=== PATIENT | male | born 1945 | race Hispanic/Latino ===

== ENCOUNTER 2017-08-19 18:45 | Inpatient (IN) | payer OTHER ==
[~2017-08-19] VITALS: Ht 180.3 cm; Wt 73.3 kg
[~2017-08-19 18:45] MED LIST: CLOP75TA14 PO; SIMV10TA6 PO; metformin PO
[2017-08-19] MEDS ORDERED: CEFEPIME HCL 1 GM VIAL ONE (20:50)
[2017-08-19 21:04] LABS: BASOPHILS % (AUTO) 0.6 % (0.0-5.0); EOSINOPHILS % (AUTO) 1.2 % (0.0-8.0); HEMATOCRIT 36.7 % (42-54); LYMPHOCYTES % (AUTO) 8.4 % (21.0-51.0); MEAN CORPUSCULAR HEMOGLOBIN 30.1 pg (27.0-33.0); MEAN CORPUSCULAR HGB CONC 33.5 g/dL (32.0-36.0); MEAN CORPUSCULAR VOLUME 89.8 fL (79-99); MONOCYTES % (AUTO) 8.7 % (3.0-13.0); NEUTROPHILS % (AUTO) 81.1 % (40.0-77.0); PLATELET COUNT (AUTO) 213 K/uL (130-400); RED BLOOD CELL COUNT(AUTO) 4.09 MIL/uL (4.50-6.20); RED CELL DISTRIBUTION WIDTH 13.4 % (11.0-15.5); WHITE BLOOD COUNT (AUTO) 9.2 K/uL (4.8-10.8)
[2017-08-19 21:11] LABS: CREATININE 1.7 mg/dL (0.5-1.5); POTASSIUM 5.2 mmol/L (3.5-5.1)
[2017-08-19 21:19] LABS: ALBUMIN 3.2 g/dL (3.5-5.0); BILIRUBIN,DIRECT 0.2 mg/dL (0.0-0.3); BILIRUBIN,TOTAL 0.4 mg/dL (0.2-1.0)
[2017-08-19 22:30] VITALS: BP 152/98
[2017-08-20] VITALS: BP 156/68
[2017-08-20] MEDS ORDERED: AMLO5TAB2 PO (02:25)
[2017-08-20] MEDS ORDERED: LISI40TA4 PO (02:25)
[2017-08-20] MEDS ORDERED: ASPI-1026 PO (02:25)
[2017-08-20 04:00] VITALS: BP 134/61
[2017-08-20 04:25] LABS: MEAN CORPUSCULAR HEMOGLOBIN 31.1 pg (27.0-33.0); MEAN CORPUSCULAR HGB CONC 34.9 g/dL (32.0-36.0); NUCLEATED RED BLOOD CELLS 0.1 % (0.0-0.19); PLATELET COUNT (AUTO) 201 K/uL (130-400); RED BLOOD CELL COUNT(AUTO) 3.82 MIL/uL (4.50-6.20); RED CELL DISTRIBUTION WIDTH 13.3 % (11.0-15.5); WHITE BLOOD COUNT (AUTO) 7.5 K/uL (4.8-10.8)
[2017-08-20 04:44] LABS: ALBUMIN 2.9 g/dL (3.5-5.0); BILIRUBIN,DIRECT 0.1 mg/dL (0.0-0.3); BILIRUBIN,TOTAL 0.5 mg/dL (0.2-1.0); CREATININE 1.3 mg/dL (0.5-1.5); POTASSIUM 4.7 mmol/L (3.5-5.1); TOTAL PROTEIN, SERUM 7.2 g/dL (6.0-8.3)
[2017-08-20 08:00] VITALS: BP 136/57
[2017-08-20] MEDS ORDERED: INSULIN LISPRO 100 UNIT/ML 3ML SQ PRN (08:30)
[2017-08-20] MEDS: CLOPIDOGREL BISULFATE 75 MG TAB PO SCH (09:00)
[2017-08-20] MEDS: ASPIRIN 325 MG TABLET PO SCH (09:00)
[2017-08-20] MEDS ORDERED: CEFEPIME 1GM+NS 50ML 50 ML IV SCH (10:00)
[2017-08-20] MEDS ORDERED: ACETAMINOPHEN EXTRA STRENGTH 500 MG TABLET ONE (11:13)
[2017-08-20] MEDS: CEFEPIME HCL 1 GM VIAL IVP SCH ×2 (11:15→23:07)
[2017-08-20] MEDS: AMLODIPINE BESYLATE 5 MG TAB PO SCH (11:16)
[2017-08-20] MEDS: LISINOPRIL 40 MG TABLET PO SCH ×2 (11:16→20:38)
[2017-08-20 12:00] VITALS: BP_SYST 113; BP_SYST 145; BP_DIAS 67; BP_DIAS 68
[2017-08-20 16:00] VITALS: BP 129/58
[2017-08-20] MEDS: METFORMIN HCL 500 MG TABLET PO SCH ×2 (18:02→18:06)
[2017-08-20] MEDS: ACETAMINOPHEN EXTRA STRENGTH 500 MG TABLET PO PRN (18:02)
[2017-08-20 20:00] VITALS: BP 142/62
[2017-08-20] MEDS ORDERED: ATORVASTATIN CALCIUM 10 MG TABLET PO SCH (21:00)
[2017-08-21] VITALS (10 sets, daily range): BP systolic 99–166; BP diastolic 47–78
[2017-08-21 03:52] LABS: HEMATOCRIT 35.5 % (42-54); MEAN CORPUSCULAR HEMOGLOBIN 31.2 pg (27.0-33.0); MEAN CORPUSCULAR VOLUME 89.1 fL (79-99); PLATELET COUNT (AUTO) 192 K/uL (130-400); RED BLOOD CELL COUNT(AUTO) 3.99 MIL/uL (4.50-6.20); RED CELL DISTRIBUTION WIDTH 13.3 % (11.0-15.5); WHITE BLOOD COUNT (AUTO) 8.4 K/uL (4.8-10.8)
[2017-08-21 04:02] LABS: CREATININE 1.2 mg/dL (0.5-1.5); POTASSIUM 4.9 mmol/L (3.5-5.1)
[2017-08-21 04:16] LABS: BAND NEUTROPHILS % (MANUAL) 8 % (0-2); EOSINOPHILS % (MANUAL) 4 % (1-6); LYMPHOCYTES % (MANUAL) 9 % (22-44); MAN.DIFF COMMENT-IMPRESSION MANUAL DIFFERENTIAL; MONOCYTES % (MANUAL) 6 % (2-9); PLATELET MORPHOLOGY COMMENT ADEQUATE; SEGMENTED NEUTROPHILS % 73 % (40-70)
[2017-08-21] MEDS: METFORMIN HCL 500 MG TABLET PO SCH ×2 (08:00→17:00)
[2017-08-21] MEDS: CLOPIDOGREL BISULFATE 75 MG TAB PO SCH (09:00)
[2017-08-21] MEDS: ASPIRIN 325 MG TABLET PO SCH (09:00)
[2017-08-21] MEDS: CEFEPIME HCL 1 GM VIAL IVP SCH ×2 (09:21→21:02)
[2017-08-21] MEDS: LISINOPRIL 40 MG TABLET PO SCH ×2 (09:21→20:42)
[2017-08-21] MEDS: AMLODIPINE BESYLATE 5 MG TAB PO SCH (09:49)
[2017-08-21] MEDS ORDERED: DiphenhydrAMINE HCL 50 MG/ML VIAL IVP PRN (12:15)
[2017-08-21 14:04] LABS: INR 1.08 (0.85-1.15); PARTIAL THROMBOPLASTIN TIME 28.2 SEC (26.3-35.5); PROTHROMBIN TIME 11.3 SEC (9.6-11.6)
[2017-08-21] MEDS ORDERED: NITROGLYCERIN 5 MG/ML 10 ML VIAL IV ONE (15:31)
[2017-08-21] MEDS ORDERED: HEPARIN SODIUM 1000UNIT/ML 10ML VIAL ONE (15:31)
[2017-08-21] MEDS ORDERED: ISOVUE-300 100 ML VIAL IV ONE ×3 (15:32→16:34)
[2017-08-21] MEDS ORDERED: LIDOCAINE HCL-MPF 2% 5ML VIAL ONE (15:36)
[2017-08-21] MEDS ORDERED: MIDAZOLAM HCL 1 MG/ML 2ML VIAL ONE (15:53)
[2017-08-21] MEDS ORDERED: FENTANYL CITRATE PF 50 MCG/1 ML 2ML VIAL ONE (15:53)
[2017-08-21] MEDS ORDERED: DiphenhydrAMINE HCL 50 MG/ML VIAL ONE (16:01)
[2017-08-21] MEDS ORDERED: ASPIRIN 325MG EC TAB 325 MG TABLET.DR PO ONE (17:12)
[2017-08-21] MEDS ORDERED: TICAGRELOR 90 MG TABLET ONE (17:12)
[2017-08-21] MEDS ORDERED: SODIUM CHLORIDE 0.9% 1000ML 1,000 ML IV SCH (17:30)
[2017-08-21] MEDS: ATORVASTATIN CALCIUM 40 MG TABLET PO SCH (20:42)
[2017-08-22] VITALS (29 sets, daily range): BP systolic 93–199; BP diastolic 48–91
[2017-08-22] MEDS ORDERED: TICAGRELOR 90 MG TABLET PO SCH (04:00)
[2017-08-22 04:16] LABS: HEMATOCRIT 35.7 % (42-54); MEAN CORPUSCULAR HEMOGLOBIN 30.5 pg (27.0-33.0); MEAN CORPUSCULAR HGB CONC 34.4 g/dL (32.0-36.0); MEAN CORPUSCULAR VOLUME 88.6 fL (79-99); PLATELET COUNT (AUTO) 225 K/uL (130-400); RED BLOOD CELL COUNT(AUTO) 4.03 MIL/uL (4.50-6.20); RED CELL DISTRIBUTION WIDTH 13.2 % (11.0-15.5); WHITE BLOOD COUNT (AUTO) 7.5 K/uL (4.8-10.8)
[2017-08-22 04:33] LABS: CREATININE 1.4 mg/dL (0.5-1.5); POTASSIUM 5.1 mmol/L (3.5-5.1)
[2017-08-22] MEDS: ACETAMINOPHEN EXTRA STRENGTH 500 MG TABLET PO PRN (06:13)
[2017-08-22] MEDS: SODIUM CHLORIDE 0.9% 1000ML 1,000 ML IV SCH ×3 (06:14→20:08)
[2017-08-22] MEDS ORDERED: METHYLPREDNISOLONE SOD SUCC 125MG/2ML VIAL IVP SCH (07:15)
[2017-08-22] MEDS: METFORMIN HCL 500 MG TABLET PO SCH ×2 (08:00→17:00)
[2017-08-22] MEDS: LISINOPRIL 40 MG TABLET PO SCH ×2 (09:00→21:00)
[2017-08-22] MEDS: AMLODIPINE BESYLATE 5 MG TAB PO SCH (09:00)
[2017-08-22] MEDS: ASPIRIN 81MG TAB.CHEW PO SCH (09:00)
[2017-08-22] MEDS: CLOPIDOGREL BISULFATE 75 MG TAB PO SCH ×2 (09:00→10:00)
[2017-08-22] MEDS: CEFEPIME HCL 1 GM VIAL IVP SCH ×2 (10:27→21:10)
[2017-08-22] MEDS ORDERED: LIDOCAINE HCL 1% 20 ML VIAL ONE (13:17)
[2017-08-22] MEDS ORDERED: BUPIVACAINE/PF 0.5% 30ML VIAL ONE (13:18)
[2017-08-22] MEDS ORDERED: PROPOFOL 10 MG/ML 20ML VIAL IV ONE (18:02)
[2017-08-22] MEDS ORDERED: MIDAZOLAM HCL 1 MG/ML 2ML VIAL ONE (18:05)
[2017-08-22] MEDS ORDERED: EPHEDRINE SULFATE 50 MG/ML AMPULE ONE (18:24)
[2017-08-22] MEDS: ATORVASTATIN CALCIUM 40 MG TABLET PO SCH (21:10)
[2017-08-23] VITALS (7 sets, daily range): BP systolic 105–127; BP diastolic 48–63
[2017-08-23] MEDS: ACETAMINOPHEN EXTRA STRENGTH 500 MG TABLET PO PRN ×2 (03:28→09:22)
[2017-08-23] MEDS: SODIUM CHLORIDE 0.9% 1000ML 1,000 ML IV SCH ×3 (04:08→20:08)
[2017-08-23] MEDS: CLOPIDOGREL BISULFATE 75 MG TAB PO SCH ×2 (09:00→09:21)
[2017-08-23] MEDS: METFORMIN HCL 500 MG TABLET PO SCH ×2 (09:21→16:42)
[2017-08-23] MEDS: ASPIRIN 81MG TAB.CHEW PO SCH (09:21)
[2017-08-23] MEDS: AMLODIPINE BESYLATE 5 MG TAB PO SCH (09:21)
[2017-08-23] MEDS: CEFEPIME HCL 1 GM VIAL IVP SCH ×2 (09:22→21:33)
[2017-08-23] MEDS: LISINOPRIL 40 MG TABLET PO SCH ×2 (09:22→21:33)
[2017-08-23] MEDS: ATORVASTATIN CALCIUM 40 MG TABLET PO SCH (21:33)
[2017-08-23] MEDS: MORPHINE SULFATE 2 MG/ML 1ML SYG IVP PRN (22:04)
[2017-08-24] MEDS: SODIUM CHLORIDE 0.9% 1000ML 1,000 ML IV SCH ×2 (04:08→12:08)
[2017-08-24 04:29] LABS: HEMATOCRIT 29.1 % (42-54); MEAN CORPUSCULAR HEMOGLOBIN 32.5 pg (27.0-33.0); MEAN CORPUSCULAR HGB CONC 36.8 g/dL (32.0-36.0); MEAN CORPUSCULAR VOLUME 88.3 fL (79-99); PLATELET COUNT (AUTO) 203 K/uL (130-400); RED BLOOD CELL COUNT(AUTO) 3.29 MIL/uL (4.50-6.20); RED CELL DISTRIBUTION WIDTH 13.4 % (11.0-15.5); WHITE BLOOD COUNT (AUTO) 8.8 K/uL (4.8-10.8)
[2017-08-24 04:41] LABS: CREATININE 1.3 mg/dL (0.5-1.5); POTASSIUM 4.6 mmol/L (3.5-5.1)
[2017-08-24 04:55] VITALS: BP 145/53
[2017-08-24 08:16] VITALS: BP 114/70
[2017-08-24] MEDS: CLOPIDOGREL BISULFATE 75 MG TAB PO SCH ×2 (09:00→10:23)
[2017-08-24] MEDS: METFORMIN HCL 500 MG TABLET PO SCH ×2 (10:22→16:58)
[2017-08-24] MEDS: ASPIRIN 81MG TAB.CHEW PO SCH (10:23)
[2017-08-24] MEDS: LISINOPRIL 40 MG TABLET PO SCH ×2 (10:25→20:34)
[2017-08-24] MEDS: AMLODIPINE BESYLATE 5 MG TAB PO SCH (10:25)
[2017-08-24] MEDS: CEFEPIME HCL 1 GM VIAL IVP SCH ×2 (10:27→21:11)
[2017-08-24] MEDS: MORPHINE SULFATE 2 MG/ML 1ML SYG IVP PRN ×2 (10:28→20:24)
[2017-08-24 12:00] VITALS: BP 131/57
[2017-08-24 16:00] VITALS: BP 138/58
[2017-08-24 19:45] VITALS: BP 135/58
[2017-08-24] MEDS: ATORVASTATIN CALCIUM 40 MG TABLET PO SCH (20:24)
[2017-08-24 23:45] VITALS: BP 128/53
[2017-08-25] MEDS: MORPHINE SULFATE 2 MG/ML 1ML SYG IVP PRN ×4 (00:01→21:49)
[2017-08-25 03:45] VITALS: BP 116/68
[2017-08-25 08:00] VITALS: BP 135/59
[2017-08-25] MEDS: CLOPIDOGREL BISULFATE 75 MG TAB PO SCH ×2 (09:00→10:34)
[2017-08-25] MEDS: ASPIRIN 81MG TAB.CHEW PO SCH (10:34)
[2017-08-25] MEDS: LISINOPRIL 40 MG TABLET PO SCH ×2 (10:34→20:54)
[2017-08-25] MEDS: METFORMIN HCL 500 MG TABLET PO SCH ×2 (10:34→18:16)
[2017-08-25] MEDS: AMLODIPINE BESYLATE 5 MG TAB PO SCH (10:34)
[2017-08-25] MEDS: CEFEPIME HCL 1 GM VIAL IVP SCH ×2 (10:35→20:54)
[2017-08-25 12:00] VITALS: BP 139/60
[2017-08-25 16:00] VITALS: BP 145/60
[2017-08-25 20:00] VITALS: BP 146/65
[2017-08-25] MEDS: ATORVASTATIN CALCIUM 40 MG TABLET PO SCH (20:55)
[2017-08-25 23:28] VITALS: BP 137/67
[2017-08-26 04:54] VITALS: BP 117/55
[2017-08-26 07:00] VITALS: BP 124/54
[2017-08-26] MEDS: CLOPIDOGREL BISULFATE 75 MG TAB PO SCH ×2 (09:00→09:19)
[2017-08-26] MEDS: ASPIRIN 81MG TAB.CHEW PO SCH (09:18)
[2017-08-26] MEDS: LISINOPRIL 40 MG TABLET PO SCH ×2 (09:18→20:34)
[2017-08-26] MEDS: METFORMIN HCL 500 MG TABLET PO SCH ×2 (09:19→16:44)
[2017-08-26] MEDS: AMLODIPINE BESYLATE 5 MG TAB PO SCH (09:19)
[2017-08-26] MEDS: CEFEPIME HCL 1 GM VIAL IVP SCH (09:19)
[2017-08-26] MEDS: MORPHINE SULFATE 2 MG/ML 1ML SYG IVP PRN ×2 (09:41→20:36)
[2017-08-26 11:00] VITALS: BP 135/70
[2017-08-26 16:00] VITALS: BP 135/70
[2017-08-26 20:00] VITALS: BP 115/59
[2017-08-26] MEDS: ATORVASTATIN CALCIUM 40 MG TABLET PO SCH (20:34)
[2017-08-26 23:32] VITALS: BP 129/54
[2017-08-27] MEDS: CEFEPIME HCL 1 GM VIAL IVP SCH ×3 (00:17→21:17)
[2017-08-27] MEDS: MORPHINE SULFATE 2 MG/ML 1ML SYG IVP PRN ×2 (00:20→05:56)
[2017-08-27 04:00] VITALS: BP 129/59
[2017-08-27 08:18] VITALS: BP 142/62
[2017-08-27] MEDS: AMLODIPINE BESYLATE 5 MG TAB PO SCH (08:57)
[2017-08-27] MEDS: METFORMIN HCL 500 MG TABLET PO SCH ×2 (08:57→17:00)
[2017-08-27] MEDS: LISINOPRIL 40 MG TABLET PO SCH ×2 (08:57→21:18)
[2017-08-27] MEDS ORDERED: MORPHINE SULFATE 4 MG/1ML SYG ONE (09:47)
[2017-08-27] MEDS: ASPIRIN 81MG TAB.CHEW PO SCH (09:49)
[2017-08-27] MEDS: CLOPIDOGREL BISULFATE 75 MG TAB PO SCH ×2 (09:50→09:53)
[2017-08-27 12:41] VITALS: BP 123/54
[2017-08-27] MEDS: INSULIN LISPRO 100 UNIT/ML 3ML SQ SCH (16:30)
[2017-08-27 17:15] VITALS: BP 116/60
[2017-08-27 19:57] VITALS: BP 125/50
[2017-08-27] MEDS: ATORVASTATIN CALCIUM 40 MG TABLET PO SCH (21:18)
[2017-08-27] MEDS: CARBAMAZEPINE 200 MG TAB.ER.12H PO SCH (21:18)
[2017-08-28] VITALS (15 sets, daily range): BP systolic 106–167; BP diastolic 54–89
[2017-08-28] MEDS ORDERED: RENAL DOSE IV SCH (01:00)
[2017-08-28] MEDS ORDERED: VANCOMYCIN 1GM+NS 250ML 250 ML IV SCH (01:00)
[2017-08-28] MEDS ORDERED: VANCOMYCIN PROTOCOL PER PHARMACY IV SCH (01:00)
[2017-08-28] MEDS ORDERED: LEVOFLOXACIN 250 MG/D5W 50ML 50 ML IV SCH (01:00)
[2017-08-28] MEDS ORDERED: VANCOMYCIN 1.5 GM in SODIUM CHLORIDE 0.9% 250 ML IV SCH (02:00)
[2017-08-28] MEDS: MORPHINE SULFATE 2 MG/ML 1ML SYG IVP PRN (02:23)
[2017-08-28 04:45] LABS: HEMATOCRIT 29.5 % (42-54); MEAN CORPUSCULAR HEMOGLOBIN 31.4 pg (27.0-33.0); MEAN CORPUSCULAR HGB CONC 35.9 g/dL (32.0-36.0); MEAN CORPUSCULAR VOLUME 87.6 fL (79-99); PLATELET COUNT (AUTO) 212 K/uL (130-400); RED BLOOD CELL COUNT(AUTO) 3.37 MIL/uL (4.50-6.20); RED CELL DISTRIBUTION WIDTH 13.2 % (11.0-15.5); WHITE BLOOD COUNT (AUTO) 8.8 K/uL (4.8-10.8)
[2017-08-28 04:57] LABS: INR 1.06 (0.85-1.15); PARTIAL THROMBOPLASTIN TIME 29.2 SEC (26.3-35.5); PROTHROMBIN TIME 11.1 SEC (9.6-11.6)
[2017-08-28 05:04] LABS: CREATININE 1.3 mg/dL (0.5-1.5); POTASSIUM 4.8 mmol/L (3.5-5.1)
[2017-08-28] MEDS: LEVOFLOXACIN 750 MG/D5W 150 ML 150 ML IV SCH (05:50)
[2017-08-28] MEDS: INSULIN LISPRO 100 UNIT/ML 3ML SQ SCH ×2 (07:00→16:30)
[2017-08-28] MEDS: VANCOMYCIN 1GM+NS 250ML 250 ML IV SCH ×4 (07:04→22:14)
[2017-08-28] MEDS: METFORMIN HCL 500 MG TABLET PO SCH ×2 (08:00→17:00)
[2017-08-28] MEDS: ASPIRIN 81MG TAB.CHEW PO SCH (08:57)
[2017-08-28] MEDS: CLOPIDOGREL BISULFATE 75 MG TAB PO SCH (08:57)
[2017-08-28] MEDS: LISINOPRIL 40 MG TABLET PO SCH ×2 (09:00→20:21)
[2017-08-28] MEDS: AMLODIPINE BESYLATE 5 MG TAB PO SCH (09:00)
[2017-08-28] MEDS: CARBAMAZEPINE 200 MG TAB.ER.12H PO SCH ×2 (09:10→20:38)
[2017-08-28] MEDS: SODIUM CHLORIDE 0.9% 1000ML 1,000 ML IV SCH ×2 (10:00→20:21)
[2017-08-28] MEDS ORDERED: DiphenhydrAMINE HCL 50 MG/ML VIAL IVP PRN (10:00)
[2017-08-28] MEDS ORDERED: LIDOCAINE HCL 1% 20 ML VIAL ONE (12:21)
[2017-08-28] MEDS ORDERED: BIVALIRUDIN 250 MG/VIAL IV ONE (12:21)
[2017-08-28] MEDS ORDERED: HEPARIN SODIUM 1000UNIT/ML 10ML VIAL ONE (12:21)
[2017-08-28] MEDS ORDERED: ISOVUE-300 100 ML VIAL IV ONE ×2 (12:22)
[2017-08-28] MEDS ORDERED: MIDAZOLAM HCL 1 MG/ML 2ML VIAL ONE (12:22)
[2017-08-28] MEDS ORDERED: NITROGLYCERIN 5 MG/ML 10 ML VIAL IV ONE (12:22)
[2017-08-28] MEDS ORDERED: FENTANYL CITRATE PF 50 MCG/1 ML 2ML VIAL ONE (12:22)
[2017-08-28] MEDS ORDERED: DiphenhydrAMINE HCL 50 MG/ML VIAL ONE (12:50)
[2017-08-28] MEDS ORDERED: SODIUM CHLORIDE 0.9% 1000ML 1,000 ML IV SCH (14:37)
[2017-08-28] MEDS ORDERED: CLOPIDOGREL BISULFATE 300 MG TAB ONE (14:42)
[2017-08-28] MEDS: ATORVASTATIN CALCIUM 40 MG TABLET PO SCH (20:21)
[2017-08-28] MEDS: HYDROMORPHONE 1 MG/1 ML AMP IVP PRN (20:22)
[2017-08-29] VITALS (23 sets, daily range): BP systolic 104–160; BP diastolic 36–79
[2017-08-29] MEDS: LEVOFLOXACIN 750 MG/D5W 150 ML 150 ML IV SCH (01:15)
[2017-08-29 04:02] LABS: HEMATOCRIT 28.5 % (42-54); MEAN CORPUSCULAR HEMOGLOBIN 30.7 pg (27.0-33.0); MEAN CORPUSCULAR HGB CONC 35.2 g/dL (32.0-36.0); MEAN CORPUSCULAR VOLUME 87.2 fL (79-99); PLATELET COUNT (AUTO) 224 K/uL (130-400); RED BLOOD CELL COUNT(AUTO) 3.26 MIL/uL (4.50-6.20); WHITE BLOOD COUNT (AUTO) 7.3 K/uL (4.8-10.8)
[2017-08-29 04:11] LABS: CREATININE 1.3 mg/dL (0.5-1.5); POTASSIUM 4.4 mmol/L (3.5-5.1)
[2017-08-29] MEDS: VANCOMYCIN 1GM+NS 250ML 250 ML IV SCH ×2 (05:44→14:35)
[2017-08-29] MEDS: SODIUM CHLORIDE 0.9% 1000ML 1,000 ML IV SCH ×2 (05:44→16:00)
[2017-08-29] MEDS: INSULIN LISPRO 100 UNIT/ML 3ML SQ SCH ×2 (06:09→16:30)
[2017-08-29] MEDS ORDERED: BUPIVACAINE/PF 0.5% 30ML VIAL ONE (06:27)
[2017-08-29] MEDS ORDERED: LIDOCAINE HCL 1% 20 ML VIAL ONE (06:27)
[2017-08-29] MEDS ORDERED: PROPOFOL 10 MG/ML 20ML VIAL IV ONE (06:35)
[2017-08-29] MEDS ORDERED: EPHEDRINE SULFATE 50 MG/ML AMPULE ONE (06:57)
[2017-08-29] MEDS: METFORMIN HCL 500 MG TABLET PO SCH ×2 (07:00→16:57)
[2017-08-29] MEDS ORDERED: FENTANYL CITRATE PF 50 MCG/1 ML 2ML VIAL ONE (08:05)
[2017-08-29] MEDS: ASPIRIN 81MG TAB.CHEW PO SCH (10:22)
[2017-08-29] MEDS: AMLODIPINE BESYLATE 5 MG TAB PO SCH (10:22)
[2017-08-29] MEDS: CLOPIDOGREL BISULFATE 75 MG TAB PO SCH (10:22)
[2017-08-29] MEDS: LISINOPRIL 40 MG TABLET PO SCH ×2 (10:22→20:32)
[2017-08-29] MEDS: CARBAMAZEPINE 200 MG TAB.ER.12H PO SCH ×2 (10:23→20:32)
[2017-08-29] MEDS ORDERED: MORPHINE SULFATE 4 MG/1ML SYG ONE (20:17)
[2017-08-29] MEDS: ATORVASTATIN CALCIUM 40 MG TABLET PO SCH (20:32)
[2017-08-29] MEDS ORDERED: COMPOUND IV REFRIGERATED 1 EACH IVSOLN MISC PRN (22:00)
[2017-08-30] VITALS (7 sets, daily range): BP systolic 94–145; BP diastolic 52–73
[2017-08-30] MEDS: SODIUM CHLORIDE 0.9% 1000ML 1,000 ML IV SCH ×2 (02:00→21:18)
[2017-08-30] MEDS: LEVOFLOXACIN 750 MG/D5W 150 ML 150 ML IV SCH (02:05)
[2017-08-30] MEDS ORDERED: MORPHINE SULFATE 4 MG/1ML SYG ONE (02:07)
[2017-08-30] MEDS: INSULIN LISPRO 100 UNIT/ML 3ML SQ SCH ×2 (07:30→15:59)
[2017-08-30] MEDS: CARBAMAZEPINE 200 MG TAB.ER.12H PO SCH ×2 (10:04→21:20)
[2017-08-30] MEDS: VANCOMYCIN 750MG + D5W 250 ML IV SCH ×6 (10:04→22:22)
[2017-08-30] MEDS: AMLODIPINE BESYLATE 5 MG TAB PO SCH (10:04)
[2017-08-30] MEDS: CLOPIDOGREL BISULFATE 75 MG TAB PO SCH (10:04)
[2017-08-30] MEDS: METFORMIN HCL 500 MG TABLET PO SCH ×2 (10:04→16:09)
[2017-08-30] MEDS: ASPIRIN 81MG TAB.CHEW PO SCH (10:04)
[2017-08-30] MEDS: LISINOPRIL 40 MG TABLET PO SCH ×2 (10:04→21:21)
[2017-08-30] MEDS: ATORVASTATIN CALCIUM 40 MG TABLET PO SCH (21:20)
[2017-08-30] MEDS: HYDROMORPHONE 1 MG/1 ML AMP IVP PRN (21:27)
[2017-08-31] MEDS: LEVOFLOXACIN 750 MG/D5W 150 ML 150 ML IV SCH (02:10)
[2017-08-31 03:40] VITALS: BP 110/50
[2017-08-31] MEDS ORDERED: ONDANSETRON 4 MG TABLET PO PRN (06:30)
[2017-08-31] MEDS: VANCOMYCIN 750MG + D5W 250 ML IV SCH ×2 (06:51)
[2017-08-31 07:00] VITALS: BP 123/51
[2017-08-31] MEDS ORDERED: ONDANSETRON HCL 4 MG/2 ML VIAL IVP PRN (07:00)
[2017-08-31] MEDS ORDERED: ONDANSETRON HCL MDV 20ML 2 MG/ML VIAL ONE (07:02)
[2017-08-31] MEDS ORDERED: ONDANSETRON HCL MDV 20ML 2 MG/ML VIAL IV PRN (07:04)
[2017-08-31] MEDS: INSULIN LISPRO 100 UNIT/ML 3ML SQ SCH (07:30)
[2017-08-31] MEDS: LISINOPRIL 40 MG TABLET PO SCH (08:47)
[2017-08-31] MEDS: CARBAMAZEPINE 200 MG TAB.ER.12H PO SCH (08:47)
[2017-08-31] MEDS: CLOPIDOGREL BISULFATE 75 MG TAB PO SCH (08:47)
[2017-08-31] MEDS: AMLODIPINE BESYLATE 5 MG TAB PO SCH (08:47)
[2017-08-31] MEDS: ASPIRIN 81MG TAB.CHEW PO SCH (08:47)
[2017-08-31] MEDS: METFORMIN HCL 500 MG TABLET PO SCH (08:48)
[2017-08-31] MEDS: SODIUM CHLORIDE 0.9% 1000ML 1,000 ML IV SCH (08:48)
[2017-08-31] MEDS ORDERED: GABAPENTIN 100 MG CAPSULE PO SCH (09:00)
[2017-08-31 11:00] VITALS: BP 127/54
== END 2017-08-31 13:28 | DRG 270 ==
LOC: EDH 18:45 → EDHIP 18:46 → OBSVTOIN 18:46 → 3CH 21:57 → 2BH 08-28 15:21 → 3DH 08-29 17:59
PROVIDERS: ADMIT Internal Medicine; ATTEND Internal Medicine
PROC: 047L3ZZ Dilation of Left Femoral Artery, Percutaneous Approach (ICD-10-PCS; principal; 2017-08-21)
PROC: B41D1ZZ Fluoroscopy of Aorta and Bilateral Lower Extremity Arteries using Low Osmolar Contrast (ICD-10-PCS; 2017-08-21)
PROC: 0Y6N0Z9 Detachment at Left Foot, Partial 1st Ray, Open Approach (ICD-10-PCS; 2017-08-22)
PROC: 0Y6N0ZB Detachment at Left Foot, Partial 2nd Ray, Open Approach (ICD-10-PCS; 2017-08-22)
PROC: 0Y6N0ZC Detachment at Left Foot, Partial 3rd Ray, Open Approach (ICD-10-PCS; 2017-08-22)
PROC: 0Y6N0ZD Detachment at Left Foot, Partial 4th Ray, Open Approach (ICD-10-PCS; 2017-08-22)
PROC: 0Y6N0ZF Detachment at Left Foot, Partial 5th Ray, Open Approach (ICD-10-PCS; 2017-08-22)
PROC: 04CM3ZZ Extirpation of Matter from Right Popliteal Artery, Percutaneous Approach (ICD-10-PCS; 2017-08-28)
PROC: 047M3ZZ Dilation of Right Popliteal Artery, Percutaneous Approach (ICD-10-PCS; 2017-08-28)
PROC: B41F1ZZ Fluoroscopy of Right Lower Extremity Arteries using Low Osmolar Contrast (ICD-10-PCS; 2017-08-28)
PROC: 0JBQ0ZZ Excision of Right Foot Subcutaneous Tissue and Fascia, Open Approach (ICD-10-PCS; 2017-08-28)
PROC: 04CT3ZZ Extirpation of Matter from Right Peroneal Artery, Percutaneous Approach (ICD-10-PCS; 2017-08-28)
PROC: 0QBN0ZZ Excision of Right Metatarsal, Open Approach (ICD-10-PCS; 2017-08-29)
DX: E11.52 Type 2 diabetes mellitus with diabetic peripheral angiopathy with gangrene (principal); N17.1 Acute kidney failure with acute cortical necrosis; L03.116 Cellulitis of left lower limb; I70.92 Chronic total occlusion of artery of the extremities; E11.22 Type 2 diabetes mellitus with diabetic chronic kidney disease; E11.40 Type 2 diabetes mellitus with diabetic neuropathy, unspecified; M86.8X7 Other osteomyelitis, ankle and foot; E11.319 Type 2 diabetes mellitus with unspecified diabetic retinopathy without macular edema; E11.69 Type 2 diabetes mellitus with other specified complication; L03.012 Cellulitis of left finger; D64.9 Anemia, unspecified; E11.610 Type 2 diabetes mellitus with diabetic neuropathic arthropathy; E11.621 Type 2 diabetes mellitus with foot ulcer; E78.5 Hyperlipidemia, unspecified; G50.0 Trigeminal neuralgia; I12.9 Hypertensive chronic kidney disease with stage 1 through stage 4 chronic kidney disease, or unspecified chronic kidney disease; I25.10 Atherosclerotic heart disease of native coronary artery without angina pectoris; I70.201 Unspecified atherosclerosis of native arteries of extremities, right leg; J44.9 Chronic obstructive pulmonary disease, unspecified; L97.519 Non-pressure chronic ulcer of other part of right foot with unspecified severity; L97.529 Non-pressure chronic ulcer of other part of left foot with unspecified severity; N18.9 Chronic kidney disease, unspecified; Z79.82 Long term (current) use of aspirin; Z89.419 Acquired absence of unspecified great toe
CPT/HCPCS: 36415; 37225; 37229; 70450; 73630; 73718; 75625; 75716; 80048; 80076; 80202; 82948; 83735; 85025; 85027; 85347; 85610; 85730; 87070; 87076; 87077; 87186; 88304; 88305; 88311; 93925; 99152; 99153; A4218; C1725; C1760; C1769; C1884; C1893; C1894; J0583; J0692; J1170; J1200; J1644; J1956; J2250; J2270; J2704; J2930; J3010; J3370; J3490; J7030; J7060; Q9967

== ENCOUNTER → 2021-04-07 | Outpatient (CLI) | payer OTHER ==
[~2021-04-07] MED LIST changes: +AMLO-257 PO; +ASPI-1026 PO; +LISI40TA9 PO; +REGADENOSON 0.4 MG/5 ML PF SYG IVP SCH; -SIMV10TA6 PO; +SIMV10TA97 PO
== END | disposition home or self-care (01) ==
LOC: SHCH 09:02
PROVIDERS: ATTEND Internal Medicine Cardiovascular Disease
DX: G45.9 Transient cerebral ischemic attack, unspecified (principal); R94.31 Abnormal electrocardiogram [ECG] [EKG]; Z95.1 Presence of aortocoronary bypass graft
CPT/HCPCS: 78452; 93017; A9500 ×2; J2785; 96374